=== PATIENT | male | born 1965 | race Caucasian/White ===

== ENCOUNTER 2019-07-07 09:59 | Emergency (ER) | payer SELFPAY ==
[2019-07-07 10:05] VITALS: BP 139/75; PULSE 79; RESP 16; TEMP 36.7; O2SAT 99; BMI 28.5
[2019-07-07 10:13] VITALS: BP 135/79; PULSE 72; RESP 17; O2SAT 98
--- NOTE | 2019-07-07 10:16 | PC.NURSE ---
Pt stated he [place] about 3-4 weeks ago. Pt stated he kind of twisted his back, and since then has had increase in pain of his lower back. Pt stated he has gone to the chiropractor twice, with some improvement on movement, but the pain is still present.
[2019-07-07] MEDS: orphenadrine 30 mg/mL Inj 2 mL 60 MG IM (10:30)
--- NOTE | 2019-07-07 10:30 | W.ED.BACK ---
HPI - Back Pain/Injury General: Chief Complaint: Back Pain/Injury Stated Complaint: Lower back pain from a fall 3 weeks ago Time Seen by Provider: 07/07/19 10:06 History of Present Illness: HPI Narrative: 53-year-old male presents with complaint of back pain particularly on the right side he is not previously had any surgery issues with his back he slipped on a rock while fishing recently he never actually completely fell but in the process of slipping felt a muscle pull sprain progressively worsened over the last couple days not been taking much for denies fecal incontinence urinary retention he does have some pain radiating down his right posterior thigh to the level of the knee. MD elicited complaint: back pain Timing: constant Severity: severe Quality: sharp Location: lumbar spine Radiation: right upper leg Associated symptoms: Reports other (No urinary retention); Deny chills, change in bowel habits, difficulty walking, dysuria, fatigue, fecal incontinence, fever(s), hematuria, syncope or urinary urgency Review of Systems Const: Denies: fever, chills, body aches, fatigue, malaise or night sweats Eyes: Denies: change in vision or blurry vision ENMT: Denies: throat pain, oral sores/lesions, dental pain, nasal discharge or nasal congestion Card: Denies: chest pain, palpitations, irregular heart rhythm, edema, syncope, shortness of breath on exertion, shortness of breath when lying down or leg pain with exertion Resp: Denies: shortness of breath, productive cough, non-productive cough or wheezing GI: Denies: fecal incontinence or change in bowel habits : Denies: flank pain, difficulty urinating, painful urination, urinary frequency, urinary urgency, urinary incontinence or blood in urine Musc: Reports: back pain; Denies: neck pain, extremity pain, extremity swelling, joint pain or joint swelling Skin/Breast: Denies: rash, itching or redness Neuro: Denies: headache, numbness in extremities, weakness in extremities, changes in sensation, lack of coordination, difficulty walking, frequent falls, dizziness, vertigo or confusion Psych: Denies: anxiety, depression, loss of interest, visual hallucinations, auditory hallucinations, suicidal ideation or homicidal ideation Endo: Denies: excessive urination, excessive thirst, tired all the time or cold intolerance Hermes/Lymph: Denies: easy bruising, easy bleeding, petechiae, enlarged lymph nodes or tender lymph nodes PFSH ED PFSH: Statuses (acute, chronic, etc) shown below reflect problem list status as previously entered and may not be historically accurate Social History Smoking and tobacco status: current every day smoker Physical Exam Const: COMMON NORMALS: average body habitus, oriented x3 and alert GENERAL APPEARANCE: cooperative, comfortable, well kempt and well developed NUTRITIONAL APPEARANCE: obese ORIENTATION/CONSCIOUSNESS: Yes awake, Yes oriented to person and Yes oriented to place HENMT: COMMON NORMALS: normocephalic, head/scalp atraumatic, EAC's normal, TM's normal bilaterally, external nose normal, moist oral mucous membranes and oropharynx normal HEAD & SCALP: normocephalic and atraumatic NOSE: external nose normal EXTERNAL AUDITORY CANAL: EAC's normal TYMPANIC MEMBRANE: TM's normal bilaterally MOUTH: oral and palatal mucosa normal, lip normal and tongue normal THROAT: posterior oropharynx normal and tonsils normal Eye: COMMON NORMALS: PERRL, EOMs intact bilaterally, conjunctivae normal and no scleral icterus CONJUNCTIVA: Yes conjunctivae normal PUPIL: Yes PERRL Neck/C-Spine: COMMON NORMALS: full ROM, no lymphadenopathy, supple, no meningeal signs and thyroid normal THYROID: thyroid normal and asymmetrical Lymph: LYMPHATIC: no lymphadenopathy noted Resp: COMMON NORMALS: normal respiratory effort, no retractions, no use of accessory muscles and clear to auscultation bilaterally AUSCULTATION: clear to auscultation bilaterally Cardio: COMMON NORMALS: regular rate and regular rhythm RATE: regular rate RHYTHM: regular rhythm HEART SOUNDS: no murmurs GI: COMMON NORMALS: normal to inspection, nondistended, normoactive bowel sounds, soft to palpation and no hepatosplenomegaly PALPATION: Yes soft and Yes no hepatosplenomegaly Extremity: COMMON NORMALS: no clubbing, cyanosis or edema, no calf tenderness and no pedal edema Neuro: COMMON NORMALS: oriented x3 SENSORIUM/ORIENTATION: Yes alert, Yes oriented to person and Yes oriented to place MENINGEAL SIGNS: Yes no meningeal signs SENSORY EXAM: No sensory level loss detected MOTOR EXAM: strength 5/5 throughout DEEP TENDON REFLEXES: Rt Patellar (L4): 2+ and Lt Patellar (L4): 2+ OTHER: No clonus, negative straight leg raising test bilaterally Psych: APPEARANCE: Yes well kempt Skin: COMMON NORMALS: no rashes or lesions noted and skin turgor normal GENERAL SKIN EXAM: no rashes or lesions noted and turgor normal Course ED course: Musculoskeletal back pain with no significant trauma. He has no bowel or bladder issues that he is noticed. Recommend anti-inflammatories rest gentle stretching. If this persists follow-up with primary care physician for further evaluation. Vital Signs: Vital signs: Vital Signs Temperature 98.1 F 07/07/19 10:05 Pulse Rate 72 07/07/19 10:13 Respiratory Rate 17 07/07/19 10:13 Blood Pressure 135/79 07/07/19 10:13 Pulse Oximetry 98 07/07/19 10:13 Discharge Plan Discharge Patient Disposition: Home, Self-Care Clinical Impression: Strain of lumbar region Condition: Stable Prescriptions: New diclofenac sodium 75 mg tablet,delayed release (DR/EC) 75 mg PO Q12H PRN (Reason: pain) Qty: 30 RF: 0 Skelaxin 800 mg tablet 800 mg PO TID PRN (Reason: muscle pain) Qty: 30 RF: 0 Discharge Orders: Discharge Order (Routine); Ordered 07/07/19 Ordered By: Alfredo Del Valle Discharge Diet: Usual diet Discharge Activity: Increase activity as tolerated Activity Restrictions/Additional Instructions: This management will call with referral to primary care physician Coding Level of Care Code ED Patient Care Associate for Sissy Fwd Exam Problem Focused
[2019-07-07] MEDS: ketorolac 60 mg/2 mL INJ IM (10:34)
[2019-07-07 10:59] VITALS: BP 159/49; PULSE 75; RESP 16; O2SAT 98
--- NOTE | 2019-07-08 14:41 | DCPLANNER ---
Addendum entered by Mari Wiggins 07/08/19 15:54: Patients called disease case manager back, disease case manager was told that patient does not want to be set up at this time due to having no insurance. manager integrity mailed patient both of the patient financial advocate applications to the patient. Original Note: manager integrity had message to speak with patient about getting established with a primary care physician. manager integrity called patient at the phone number [phone], unable to speak with patient at this time, a voicemail was left for patient to return case manager specialist phone call.
== END 2019-07-07 10:49 | disposition home or self-care (01) ==
PROVIDERS: Emergency Provider Family Medicine
DX: S39.012A Strain of muscle, fascia and tendon of lower back, initial encounter (principal); W18.40XA Slipping, tripping and stumbling without falling, unspecified, initial encounter; F17.210 Nicotine dependence, cigarettes, uncomplicated
CPT/HCPCS: 96372; 99281; J1885; J2360